=== PATIENT | male | born 1950 | race Caucasian/White ===

== ENCOUNTER 2022-10-30 08:07 | Day surgery (SDC) | payer OTHER ==
[~2022-10-30] VITALS: Ht 175.3 cm; Wt 123.8 kg
[~2022-10-30 08:07] MED LIST: RANI-287 PO; SERT25TA PO; TERA5CAP8 PO
[2022-10-30] MEDS ORDERED: fentaNYL citrate 0.05 MG/ML VIAL ONE (10:07)
[2022-10-30] MEDS ORDERED: MIDAZOLAM 2 MG/2 ML VIAL ONE (10:08)
[2022-10-30] MEDS ORDERED: MIDAZOLAM 2 MG/2 ML VIAL IVP ONE (11:40)
== END 2022-10-30 11:30 | disposition home or self-care (01) ==
LOC: MOR 08:07 → MMU 08:12 → MOR 11:30
PROVIDERS: ATTEND Internal Medicine Gastroenterology
DX: R13.10 Dysphagia, unspecified (principal); F32.A Depression, unspecified; I10 Essential (primary) hypertension; K21.9 Gastro-esophageal reflux disease without esophagitis; I25.2 Old myocardial infarction; Z86.73 Personal history of transient ischemic attack (TIA), and cerebral infarction without residual deficits; Z90.49 Acquired absence of other specified parts of digestive tract
CPT/HCPCS: 43235; J2250; J3010